=== PATIENT | male | born 1960 | race Caucasian/White ===

== ENCOUNTER 2024-11-18 14:04 | Emergency (ER) | payer MEDICARE, SELFPAY ==
[2024-11-18 14:07] VITALS: BP 127/80
--- NOTE | 2024-11-18 15:31 | ED.MUSCINJ ---
HPI-Injury
General
Chief Complaint: Fall
Source: patient
Exam Limitations: none
Time Seen by Provider: 11/18/24 15:04
Nursing documentation reviewed up to this point in time: agreed with
History of Present Illness-Injury
Initial Injury comments:
64 yo male with no clinically significant PMHX presents after a fall playing pickleball at 10:30 a.m. He tripped, struck nose and left forehead on surface of court. No LOC, has mild 3/10 posterior headache, denies neck pain. Denies change in vision,
denies n/v. Denies lightheadedness, denies difficulty ambulating.
Past History
Past History
ED Past Medical History: Cancer (Melanoma left index finger) and GERD
ED Past Surgical History: Orthopedic
Social History
Tobacco: Non-smoker
Alcohol: Occasional
Personal:
Living: with family
Review of Systems
Review of Systems
Allergies reviewed?: Yes
All Other Systems: ROS reviewed and negative except as documented in HPI and ROS
Constitutional: Denies fatigue
EENT: Reports other (Nose with mild swelling, abrasion. He did have a nosebleed but this has subsided)
Respiratory: Denies trouble breathing
Cardiac: Denies chest pain or syncope
ABD/GI: Denies abdominal pain, nausea or vomiting
Musculoskeletal: Denies neck pain or back pain
Skin: Reports other (scrapes on nose)
Neurological: Reports headache (mild posterior); Denies dizzy, weakness or numbness
Phy Exam
Physical Exam
Physical Exam:
GENERAL: No acute distress. A&Ox3.
CONSTITUTIONAL: Afebrile.
EYES: clear, conjunctivae normal
ENMT: moist mucus membranes, Pharynx nl, TMs normal. Blood in both nasal passages, no active bleeding noted, no significant bony tenderness of nasal bone,
RESPIRATORY: Regular respirations, nonlabored, lungs clear.
CARDIOVASCULAR: Regular rate and rhythm, no murmurs, no rubs.
GI: Soft, nontender, normal BS
MUSCULOSKELETAL: No spinal bony tenderness. Full range of motion of neck and back comfortably. Moves with ease. Well perfused.
SKIN: Warm, dry, pink. Deep clean abrasion to tip of nose.
PSYCH: Normal mood and affect. Well kept, interactive and appropriate
NEUROLOGIC: Awake, alert and oriented. Cranial nerves II through XII intact. No focal neurological deficits. Ambulates well with steady gait.
Injury Course
Orders/Labs/Results
Orders:
Orders
11/18/24 15:31
Tetanus/Diphth/Acelpertussis [Adacel] 0.5 ml IM .ONCE ONE
MDM/Problems Addressed
Differential Diagnosis Includes:
concussion
Fx nose vs contusion.
MDM/Problems Addressed:
64 yo male with no clinically significant PMHX presents after a fall playing pickleball at 10:30 a.m. He tripped, struck nose and left forehead on surface of court. No LOC, has mild 3/10 posterior headache, denies neck pain. Denies change in vision,
denies n/v. Denies lightheadedness, denies difficulty ambulating.
Patient had a mechanical fall, no loss of consciousness, no focal neurological deficits, no indication for head CT.
Patient states 'my nose does not hurt that bad,' and he requests no nasal bone x-ray. This is reasonable.
Tdap updated.
*Critical Care Note
Total Time (30-74mins, 75-104mins- exclusive of procedures): Not Applicable
ED Attending Note
-
Portions of this chart may have been created with voice recognition software.� Occasional wrong word or��sound alike� substitutions may have occurred due to the inherent limitations of voice recognition software.
Discharge Plan
Departure
Patient Disposition: Home (Routine Discharge)
Date of Disposition: 11/18/24
Time of Disposition: 15:51
Patient with high blood pressure during this ER visit?: No
Condition: Good
Discharge Problem:
Fall from slip, trip, or stumble, Abrasion of nose, Contusion of nose, Epistaxis due to trauma, Minor head injury without loss of consciousness
Instructions: Nosebleeds, Head injury in adults, Skin Abrasions (DC)
Referrals:
Jessica Jay, DO [Family Provider] - As needed
Activity Restrictions/Additional Instructions:
As we discussed, I see nothing worrisome in your exam here today.
You will most likely be a little more stiff and sore over the next day or 2 and then start to improve.
Cold compress to your nose 15 minutes off and on today and tomorrow to help reduce the swelling
Return here immediately if you develop vomiting more than 2 or 3 times in 1 hour, confusion, headache that gets worse and worse despite Tylenol or anything that worries you.
Interventions
Interventions:
*Risk Screen - Suicide Last Done: 11/18/24 14:07
*General Assessment Last Done: 11/18/24 14:35
*Neglect/Abuse Screening Last Done: 11/18/24 14:07
*ED- Fall Risk Assessment Last Done: 11/18/24 14:35
*ED COVID-19 Vaccine History Last Done: 11/18/24 14:07
*Nursing Disposition Last Done: 11/18/24 16:05
ED-Musculoskeletal Assessment Last Done: 11/18/24 14:33
ED- Neurological Assessment Last Done: 11/18/24 14:33
ED-Skin Assessment Last Done: 11/18/24 14:33
Discharge Date and Time
Discharge Date/Time: 11/18/24 16:06
Print Language: ESTONIAN
[2024-11-18] MEDS: ADACEL 0.5 ML IM (15:41)
== END 2024-11-18 16:06 | disposition home or self-care (01) ==
LOC: EMR 14:04
PROVIDERS: EMERGENCY PHYSICIAN Emergency Medicine; FAMILY PHYSICIAN Internal Medicine
DX: S09.90XA Unspecified injury of head, initial encounter (principal); S00.31XA Abrasion of nose, initial encounter; S00.33XA Contusion of nose, initial encounter; W01.0XXA Fall on same level from slipping, tripping and stumbling without subsequent striking against object, initial encounter; R04.0 Epistaxis; Z23 Encounter for immunization
CPT/HCPCS: 99282; 90471; 90715